=== PATIENT | female | born 1945 | race African-American/Black ===

== ENCOUNTER → 2017-08-27 | Outpatient (CLI) | payer OTHER ==
[2017-08-27 17:55] LABS: BUN/Creatinine Ratio 17.7; Calcium 8.9 mg/dL (8.5-10.1); Potassium 4.3 mmol/L (3.5-5.1)
== END | disposition home or self-care (01) ==
LOC: LAB 17:00
DX: I10 Essential (primary) hypertension (principal)
CPT/HCPCS: 36415; 80048

== ENCOUNTER 2019-04-02 14:03 | Emergency (ER) | payer OTHER, MEDICAID ==
[~2019-04-02] VITALS: Ht 149.9 cm; Wt 45.4 kg
[2019-04-02] MEDS ORDERED: SODIUM CHLORIDE 0.9% 1,000 ML IV ONE (15:02)
[2019-04-02 15:11] LABS: Basophils # (auto) 0.1 uL; Basophils % (auto) 1.9 % (0.0-2.0); Eosinophils # (auto) 0 uL; Eosinophils % (auto) 0.8 % (0.0-7.0); Hematocrit 42.7 % (36.0-46.0); Hemoglobin 14.5 g/dL (12.2-16.2); Lymphocytes # (auto) 1.3 uL; Lymphocytes % (auto) 27.6 % (10.0-50.0); Mean Corpuscular Hemoglobin 31.8 pg (28.0-32.0); Mean Corpuscular Hgb Conc. 33.8 g/dL (32.0-36.0); Monocytes # (auto) 0.3 uL; Monocytes % (auto) 7.2 % (0.0-12.0); Neutrophils % (auto) 62.5 % (37.0-80.0); Nucleated Red Blood Cells % 0.2 %; Platelet Count (auto) 275 10^3/uL (140-450); Red Blood Cells 4.54 10^6/uL (4.0-5.20); Red Cell Distribution Width 13.6 % (11.8-14.3); White Blood Cell 4.7 10^3/uL (4.4-10.8)
[2019-04-02 15:25] LABS: Partial Thromboplastin Time 26.8 sec (23.78-33.04); Prothrombin Time 10.7 sec (9.27-12.13)
[2019-04-02 15:30] LABS: Alanine Aminotransferase 30 U/L (13-56); Albumin 3.5 g/dL (3.4-5.0); Anion Gap 6 (5-15); Blood Alcohol < 3.0 mg/dL (0-5); Blood Urea Nitrogen 26 mg/dL (7-18); Calcium 9.5 mg/dL (8.5-10.1); Carbon Dioxide 26 mmol/L (21-32); Chloride 110 mmol/L (98-107); Glucose 158 mg/dL (74-106); Magnesium 2.8 mg/dL (1.6-2.6); Sodium 142 mmol/L (136-145)
[2019-04-02 15:35] LABS: Alkaline Phosphatase 71 U/L (45-117); Aspartate Aminotransferase 24 U/L (15-37); BUN/Creatinine Ratio 18.7; Bilirubin, Total 0.5 mg/dL (0.2-1.0); GFR African American 48 mL/min; GFR Non-African American 39 mL/min; Total Protein 7.3 g/dL (6.4-8.2)
[2019-04-02 17:10] LABS: Urine Bacteria NONE SEEN /hpf (None Seen); Urine Blood Negative /uL (Negative); Urine WBC 10 /hpf (0 - 5)
[2019-04-02] MEDS ORDERED: cefTRIAXone 1GM/50ML D5W 50 ML IV ONE (17:30)
[2019-04-02 18:52] VITALS: BP 146/99
== END 2019-04-02 18:52 | disposition home or self-care (01) ==
LOC: ER 14:03
DX: R41.82 Altered mental status, unspecified (principal); N39.0 Urinary tract infection, site not specified; I48.91 Unspecified atrial fibrillation; E11.21 Type 2 diabetes mellitus with diabetic nephropathy; G30.9 Alzheimer's disease, unspecified; F02.80 Dementia in other diseases classified elsewhere, unspecified severity, without behavioral disturbance, psychotic disturbance, mood disturbance, and anxiety; E78.5 Hyperlipidemia, unspecified; I10 Essential (primary) hypertension; I25.2 Old myocardial infarction; Z90.49 Acquired absence of other specified parts of digestive tract; Z90.710 Acquired absence of both cervix and uterus; Z87.891 Personal history of nicotine dependence
CPT/HCPCS: 36415; 70450; 71046; 80053; 80320; 81001; 82962; 83735; 84443; 84484; 85025; 85610; 85730; 93005; 94761; 96361; 96365; 99284; J0696; J7030

== ENCOUNTER 2019-08-29 23:49 | Inpatient (IN) | payer OTHER, MEDICAID ==
[~2019-08-29] VITALS: Ht 149.9 cm; Wt 73.4 kg
[2019-08-30 00:43] LABS: Basophils # (auto) 0 uL; Basophils % (auto) 0.4 % (0.0-2.0); Eosinophils # (auto) 0 uL; Eosinophils % (auto) 0.5 % (0.0-7.0); Hematocrit 47.2 % (36.0-46.0); Hemoglobin 15.7 g/dL (12.2-16.2); Lymphocytes # (auto) 0.8 uL; Lymphocytes % (auto) 13.5 % (10.0-50.0); Mean Corpuscular Hemoglobin 31.8 pg (28.0-32.0); Mean Corpuscular Hgb Conc. 33.4 g/dL (32.0-36.0); Mean Corpuscular Volume 95.1 fL (80.0-100.0); Monocytes # (auto) 0.3 uL; Monocytes % (auto) 5.1 % (0.0-12.0); Neutrophils # (auto) 4.9 uL; Neutrophils % (auto) 80.5 % (37.0-80.0); Nucleated Red Blood Cells % 0.1 %; Platelet Count (auto) 289 10^3/uL (140-450); Red Blood Cells 4.96 10^6/uL (4.0-5.20); Red Cell Distribution Width 13.2 % (11.8-14.3); White Blood Cell 6.1 10^3/uL (4.4-10.8)
[2019-08-30] MEDS ORDERED: KETOROLAC TROMETH 30 MG/ML 1ML VIAL IV ONE (01:00)
[2019-08-30] MEDS ORDERED: ONDANSETRON HCL 4 MG/2 ML VIAL IV ONE (01:00)
[2019-08-30 01:13] LABS: Albumin 3.4 g/dL (3.4-5.0); Anion Gap 8 (5-15); BUN/Creatinine Ratio 14.7; Blood Urea Nitrogen 17 mg/dL (7-18); Calcium 9.1 mg/dL (8.5-10.1); Carbon Dioxide 24 mmol/L (21-32); Chloride 106 mmol/L (98-107); GFR African American 59 mL/min; GFR Non-African American 48 mL/min; Glucose 146 mg/dL (74-106); Magnesium 2.1 mg/dL (1.6-2.6); Sodium 138 mmol/L (136-145)
[2019-08-30 01:18] LABS: Alanine Aminotransferase 36 U/L (13-56); Alkaline Phosphatase 74 U/L (45-117); Aspartate Aminotransferase 31 U/L (15-37); Bilirubin, Total 0.6 mg/dL (0.2-1.0); Total Protein 7.9 g/dL (6.4-8.2)
[2019-08-30 01:30] LABS: Urine Bacteria NONE SEEN /hpf (None Seen); Urine Blood Negative /uL (Negative); Urine Mucus FEW (None Seen); Urine Specific Gravity 1.017 (1.001-1.035); Urine WBC 4 /hpf (0 - 5)
[2019-08-30] MEDS ORDERED: MORPHINE SULFATE 4 MG/ML SYR/VIAL IV PRN (05:45)
[2019-08-30] MEDS ORDERED: ONDANSETRON HCL 4 MG/2 ML VIAL IV PRN (05:45)
[2019-08-30] MEDS ORDERED: DEXTROSE (50%) 50ML SYRG IV PRN (05:45)
[2019-08-30] MEDS ORDERED: cefTRIAXone 1GM/50ML D5W 50 ML IV ONE (08:00)
[2019-08-30] MEDS: SODIUM CHLORIDE 0.9% 1,000 ML IV SCH ×2 (08:10→19:05)
[2019-08-30] MEDS: ACCU-CHEK COMFORT CURVE STRIP VI SCH ×3 (08:22→17:58)
[2019-08-30] MEDS: InsuLIN REG 1unit/0.01ml Soln (100units/ml) SC SCH ×3 (08:23→18:00)
[2019-08-30] MEDS ORDERED: GASTROGRAFIN 120 ML SOL ONE (08:30)
--- NOTE | 2019-08-30 10:03 | NUR ---
RECEIVED PATIENT. RESTING IN BED. RECEIVED REPORT FROM AYESHA AG . PATIENT ORIENTED TO [facility]IX[facility]. ORIENTED TO HOSPITAL ROOM AND POLICY INCLUDING USE OF BED AND CALL LIGHT. PATIENT UPDATED ON POC. INFORMED OF CURRENT NPO STATUS. PATIENT VERBALIZED UNDERSTANDING. PATIENT A&OX4 WITH PERIODS OF FORGETFULLNESS. PATIENT DENIES ANY NAUSEA AND VOMITING. PATIENT HAS PATENT IV TO L AC 20 GAUGE WITH FLUIDS RUNNING NS AT 75MLS/HR. BED IN LOWEST LOCKED POSITION WITH CALL LIGHT WITHIN REACH. WILL CONTINUE CARE
--- NOTE | 2019-08-30 10:10 | NUR ---
PATIENT REPORTS HAVING ONE EPISODE OF DIARRHEA.
--- NOTE | 2019-08-30 10:25 | NUR ---
Clarisa FARIAS AT BEDSIDE. INFORMED OF PATIENT HAVING A BM. STATED "OK NO BOWEL OBSTRUCTION, I WILL SEE HER LATER."
[2019-08-30] MEDS: FAMOTIDINE (10MG/ML) 2ML VL IV SCH (10:48)
--- NOTE | 2019-08-30 11:00 | NUR ---
Clarisa OLVERA AT BEDSIDE. INFORMED OF PATIENT STATUS INCLUDING VS AND PATIENTS REPORT OF BM. INFORMED Clarisa OLVERA OF PENDING NG TUBE. STATED NO NEED FOR NG TUBE JUST CONTINUE NPO STATUS. PATIENT AWARE. WILL CONTINUE CARE.
--- NOTE | 2019-08-30 12:40 | NUR ---
SPOKE TO Clarisa OLVERA REGARDING PATIENT HOME MEDICATIONS. STATED OK TO START HOME DOSE OF XARELTO 10MG DAILY. TORB WILL FOLLOW THROUGH.
[2019-08-30] MEDS ORDERED: RIV20T PO (12:52)
[2019-08-30] MEDS ORDERED: AMLO5TAB15 PO (12:52)
[2019-08-30] MEDS ORDERED: AML5T PO (12:52)
[2019-08-30] MEDS ORDERED: MEMA1CAP2 PO (12:53)
[2019-08-30 13:00] VITALS: BP 111/82
--- NOTE | 2019-08-30 13:00 | NUR ---
SPOKE TO LIONEL PHARMACIST. INFORMED ME THAT PATIENT REQUIRES A RENAL ADJUSTMENT DOSE OF 15MG XARELTO INSTEAD OF 10MG WHICH WOULD BE TO LOW. INFORMED Clarisa OLVERA STATED DO NOT RAISE DOSE. CONTINUE WITH HOME DOSE OF 10MG XARELTO DAILY. PHARMACIST AWARE.
[2019-08-30] MEDS ORDERED: RIVAROXABAN 10 MG TAB PO ONE (13:30)
[2019-08-30] MEDS: metroNIDAZOLE 500MG/100ML 100 ML IV SCH ×2 (13:48→23:12)
--- NOTE | 2019-08-30 16:05 | NUR ---
CALLED RADIOLOGY DEPARTMENT REGARDING DICTATION OF SMALL BOWEL SERIES. RADIOLOGY STAFF STATED HE WOULD HAVE RADIOLOGIST READ STUDY.
[2019-08-30 17:00] VITALS: BP 117/88
--- NOTE | 2019-08-30 17:00 | NUR ---
REGARDING LOC: PATIENT INCREASINGLY ALTERED. PATIENT ALERT TO SELF ONLY AT THIS TIME. ATTEMPTING TO PULL ON IV AND STATING THAT IV PUMP IS NOT HERS AND SHE DOES NOT WANT ANYONE TO THINK SHE IS STEALING IT. PATIENT TOOK GOWN OFF AND STATED IT IS TO BE GIVEN TO SOMEONE ELSE. PATIENT REORIENTED TO SELF AND HOSPITAL SETTING. VERBALIZED UNDERSTANDING AT THIS TIME. FAMILY AT BEDSIDE. WILL CONTINUE CARE.
--- NOTE | 2019-08-30 17:35 | NUR ---
SPOKE TO DAUGHTER PITO ABOUT PATIENTS DECREASING LEVEL OF CONSCIOUS. DAUGHTER STATED THAT PATIENT DOES HAVE "PRETTY BAD SUNDOWNERS". PATIENT IS CURRENTLY REFUSING TO WEAR GOWN STATING THAT IT IS NOT HERS AND SHE DOES NOT WANT ANYONE TO THINK IT IS HERS. ATTEMPTED TO REORIENT PATIENT TO HOSPITAL SETTING. WILL CONTINUE CARE.
--- NOTE | 2019-08-30 17:48 | NUR ---
SPOKE TO Jossie MO REGARDING PATIENTS DECREASING LEVEL OF CONSCIOUS. RECEIVED ORDER FOR ATIVAN 0.5MG IV [id number] PRN. TORB. WILL FOLLOW THROUGH.
[2019-08-30] MEDS ORDERED: LORazepam 2MG/ML-1ML VIAL IV PRN (18:00)
--- NOTE | 2019-08-30 19:30 | NUR ---
Opening Shift Note Assumed care of patient, awake and alert x1, sitting on the side of the bed. Pleasantly confused. Family at bedside. Left forearm very edematous around IV site. IV almost completely out. Family informed me that she had been pulling and messing with it a lot. Removed IV and cleaned skin around site and lotion applied due to her very dry skin. No S/S of distress/SOB or pain. Instructed on POC and to call for assist PRN, will continue to monitor for changes Q1hr and PRN. Addendum: 08/31/19 at 0759 by EDWARDO JONES RN Clarification, patient takes namenda at home not aricept
--- NOTE | 2019-08-30 20:02 | NUR ---
Viktor hospitalist: Patient is very confused, daughter works in ER and stated she gets more altered with sundowners at this time. She takes aricept at home and daughter would like her to have it tonight if she could. According to the day RN Dr. Aguilar stated she does not have a bowel obstruction anymore. We continue to have her NPO but wanted to see if she would be able to take the aricept PO tonight.
--- NOTE | 2019-08-30 21:00 | NUR ---
New IV started to L MATOS 22 G, infusing fluids per orders. Sitting at bedside with patient until jewelry salesperson sitter arrives. Family went home and she will be back in am. Patient was upset and crying because she didnt understand why she was here and why her family kicked her out. Her daughter vignesh was very patient and kind to her mother and tried explaining the Mrs. So Addendum: 08/31/19 at 0807 by EDWARDO JONES RN The daughter kept trying explain to her she wasnt being kicked out etc over and over. When family left I too tried to explain the situation with not much luck. Ativan given. Slightly paranoid confused and sad
[2019-08-30 22:00] VITALS: BP 140/81
[2019-08-30] MEDS ORDERED: MEMANTINE HCL 5 MG TAB PO ONE (23:15)
[2019-08-31 05:24] VITALS: BP 135/81
[2019-08-31 05:27] LABS: Basophils # (auto) 0 uL; Basophils % (auto) 0.9 % (0.0-2.0); Eosinophils # (auto) 0 uL; Eosinophils % (auto) 1.2 % (0.0-7.0); Hematocrit 36.3 % (36.0-46.0); Hemoglobin 12.4 g/dL (12.2-16.2); Lymphocytes # (auto) 1.3 uL; Lymphocytes % (auto) 30.5 % (10.0-50.0); Mean Corpuscular Hemoglobin 32.3 pg (28.0-32.0); Mean Corpuscular Hgb Conc. 34.1 g/dL (32.0-36.0); Mean Corpuscular Volume 94.8 fL (80.0-100.0); Monocytes # (auto) 0.3 uL; Monocytes % (auto) 6.7 % (0.0-12.0); Neutrophils # (auto) 2.6 uL; Neutrophils % (auto) 60.7 % (37.0-80.0); Platelet Count (auto) 244 10^3/uL (140-450); Red Blood Cells 3.83 10^6/uL (4.0-5.20); Red Cell Distribution Width 12.9 % (11.8-14.3); White Blood Cell 4.3 10^3/uL (4.4-10.8)
[2019-08-31 05:47] LABS: Potassium 3.4 mmol/L (3.5-5.1)
[2019-08-31 05:53] LABS: Calcium 8.4 mg/dL (8.5-10.1)
[2019-08-31] MEDS: InsuLIN REG 1unit/0.01ml Soln (100units/ml) SC SCH ×3 (06:00→12:00)
[2019-08-31] MEDS: ACCU-CHEK COMFORT CURVE STRIP VI SCH ×3 (06:00→12:00)
[2019-08-31] MEDS: metroNIDAZOLE 500MG/100ML 100 ML IV SCH (06:17)
--- NOTE | 2019-08-31 06:18 | NUR ---
Blood sugar 54. Patient is asymptomatic at this time. Two cranberry juices given rechecked and went down to 43. Will initiate dextrose per protocol ad call Sitter at bedside. Asymptomatic
--- NOTE | 2019-08-31 06:45 | NUR ---
Dextrose given per protocol as well as notifying lugo. No new orders at this time. Last blood sugar was 140 post dextrose injection. Tolerating clear liquids well. No upset stomach/n/v noted. Patient in good spirits but spent around 30 minutes this am trying to explain why shes here and so on with little luck in her believing me
--- NOTE | 2019-08-31 07:30 | NUR ---
OPENING SHIFT NOTE PATIENT SITTING IN CHAIR. NO S/S OF DISTRESS NOTED AT THIS TIME. PATIENT ALERT TO SELF ONLY. REORIENTED TO HOSPITAL SETTING. PATIENT DENIES ANY NAUSEA OR VOMITING OR ANY ABDOMINAL PAIN. PATIENT UPDATED ON POC. ALL QUESTIONS ANSWERED. BED IN LOWEST LOCKED POSITION WITH CALL LIGHT WITHIN REACH. WILL CONTINUE CARE.
[2019-08-31] MEDS: SODIUM CHLORIDE 0.9% 1,000 ML IV SCH (08:25)
[2019-08-31] MEDS ORDERED: cefTRIAXone 1GM/50ML D5W 50 ML IV SCH (09:00)
[2019-08-31 09:19] VITALS: BP 144/80
[2019-08-31] MEDS: FAMOTIDINE (10MG/ML) 2ML VL IV SCH (09:21)
--- NOTE | 2019-08-31 09:30 | NUR ---
Clarisa FARIAS AT BEDSIDE. INFORMED OF PATIENT STATUS. INCLUDING VITAL SIGNS AND CURRENT STATUS INCLUDING A BOWEL MOVEMENT THIS MORNING AND NO NAUSEA OR VOMITING. PER Clarisa FARIAS OK TO D/C.
[2019-08-31] MEDS ORDERED: RIVAROXABAN 10 MG TAB PO SCH (10:00)
[2019-08-31] MEDS ORDERED: MEMANTINE HCL 5 MG TAB PO SCH (10:00)
--- NOTE | 2019-08-31 13:30 | NUR ---
Discharge instructions given as ordered. Encourage to follow up with PMD as instructed. All questions and concerns addressed. Patient verbalized understanding. IV removed with catheter intact, pressure dressing applied. Patient taken to vehicle via wheelchair with all personal belongings, accompanied by staff and family member. No distress noted at time of departure.
== END 2019-08-31 13:30 | disposition home health service (06) | DRG 389 ==
LOC: ER 23:52 → OVERFLOW 23:53 → WEST WING 08-30 10:06
PROVIDERS: ADMIT Nurse Practitioner; ATTEND Nurse Practitioner
DX: K56.609 Unspecified intestinal obstruction, unspecified as to partial versus complete obstruction (principal); N39.0 Urinary tract infection, site not specified; K44.9 Diaphragmatic hernia without obstruction or gangrene; N20.0 Calculus of kidney; I10 Essential (primary) hypertension; E11.9 Type 2 diabetes mellitus without complications; E78.00 Pure hypercholesterolemia, unspecified; E78.5 Hyperlipidemia, unspecified; E86.0 Dehydration; F02.80 Dementia in other diseases classified elsewhere, unspecified severity, without behavioral disturbance, psychotic disturbance, mood disturbance, and anxiety; G30.9 Alzheimer's disease, unspecified; I48.91 Unspecified atrial fibrillation; I70.0 Atherosclerosis of aorta; I25.10 Atherosclerotic heart disease of native coronary artery without angina pectoris; I25.2 Old myocardial infarction; Z79.01 Long term (current) use of anticoagulants; Z90.49 Acquired absence of other specified parts of digestive tract; Z90.710 Acquired absence of both cervix and uterus; Z87.891 Personal history of nicotine dependence
CPT/HCPCS: 36415; 71045; 74176; 74250; 80048; 80053; 81001; 82962; 83735; 84484; 85025; 96365; 96375; G0378; J0696; J1885; J2405; J3490